=== PATIENT | male | born 1960 ===

== ENCOUNTER → 2021-07-21 | Outpatient (CLI) | payer OTHER ==
[~2021-07-21] MED LIST: AMLO5 PO; CLARITIN10 MG PO; FLONASE SENSIM5.9 ML; FLUT110OIA; LOSA50 PO; LOSARTAN POTAS100 MG PO; Pravachol80 MG PO; SIMV40
== END | disposition home or self-care (01) ==
LOC: LAB 10:30 → LAB SHORT 10:30
DX: R30.9 Painful micturition, unspecified (principal)
CPT/HCPCS: 87086